=== PATIENT | male | born 1990 | race Two or more races ===

== ENCOUNTER → 2022-10-10 | Outpatient (CLI) | payer OTHER | LOC: M PLARAD 10:10 | PROVIDERS: ATTEND Physician Assistant | DX: M25.521 Pain in right elbow (principal); R93.6 Abnormal findings on diagnostic imaging of limbs ==

== ENCOUNTER → 2023-05-02 | Outpatient (REF) | payer OTHER ==
[2023-05-02 18:18] LABS: APPEARANCE, URINE CLEAR (CLEAR); BACTERIA, URINE AUTO NEGATIVE (NEGATIVE); BILIRUBIN, URINE AUTO NEGATIVE (NEGATIVE); BLOOD, URINE BLOOD 1+ (NEGATIVE); COLOR, URINE YELLOW (YELLOW); GLUCOSE, URINE (UA) AUTO NEGATIVE (NEGATIVE); KETONE, URINE AUTO TRACE mg/dL (NEGATIVE); LEUKOCYTE ESTERASE, URINE AUTO NEGATIVE (NEGATIVE); MUCUS, URINE MODERATE (NEGATIVE); NITRITE, URINE AUTO NEGATIVE (NEGATIVE); PROTEIN, URINE AUTO NEGATIVE (NEGATIVE); RBC, URINE AUTO 5 /HPF (0-3); SQUAMOUS EPITHELIAL CELL UR AU 0 /HPF (0-6); UROBILINOGEN, URINE AUTO 0.2 mg/dL (0.0-2.0); WBC, URINE AUTO 0 /HPF (0-3)
== END ==
LOC: M SMT 17:10
PROVIDERS: ATTEND Physician Assistant
DX: R31.21 Asymptomatic microscopic hematuria (principal)

== ENCOUNTER → 2023-05-27 | Outpatient (REF) | LOC: M PLAIMG 10:31 | PROVIDERS: ATTEND Internal Medicine | DX: M25.561 Pain in right knee (principal); M25.562 Pain in left knee; R06.02 Shortness of breath; J34.1 Cyst and mucocele of nose and nasal sinus ==